=== PATIENT | female | born 1960 | race Caucasian/White ===

== ENCOUNTER 2016-12-23 17:39 | Emergency (ER) | payer BC ==
[~2016-12-23] VITALS: Ht 167.6 cm; Wt 79.8 kg
[2016-12-23 17:42] VITALS: BP 134/91
[2016-12-23] MEDS ORDERED: LIDOCAINE 1%, 20ML ONE (18:19)
[2016-12-23] MEDS ORDERED: DIPH,PERTUSS(ACELL),TET VAC/PF 0.5 ML IM-VACC ONE ×2 (18:30→18:32)
[2016-12-23] MEDS ORDERED: LIDOCAINE 1%, 20ML SQ ONE (18:30)
[2016-12-23] MEDS ORDERED: BACITRACIN ZINC OINT 500U/GM, 0.9 GM ONE (19:04)
== END 2016-12-23 19:21 | disposition home or self-care (01) ==
LOC: ED 18:58
DX: S91.119A Laceration without foreign body of unspecified toe without damage to nail, initial encounter (principal); S64.496A Injury of digital nerve of right little finger, initial encounter; W26.0XXA Contact with knife, initial encounter; Y93.89 Activity, other specified; Y92.098 Other place in other non-institutional residence as the place of occurrence of the external cause; Y99.8 Other external cause status
CPT/HCPCS: 12001; 90471; 90715

== ENCOUNTER → 2017-01-30 | Outpatient (CLI) | payer BC | END | disposition home or self-care (01) | LOC: CFH 09:57 | PROVIDERS: ATTEND Student in an Organized Health Care Education/Training Program | DX: Z12.31 Encounter for screening mammogram for malignant neoplasm of breast (principal) | CPT/HCPCS: G0202 ==

== ENCOUNTER → 2018-02-05 | Outpatient (CLI) | payer OTHER | END | disposition home or self-care (01) | LOC: CFH 10:18 | PROVIDERS: ATTEND Family Medicine | DX: Z12.31 Encounter for screening mammogram for malignant neoplasm of breast (principal) | CPT/HCPCS: 77067 ==